=== PATIENT | male | born 1985 | race Caucasian/White ===

== ENCOUNTER 2016-12-20 20:13 | Inpatient (IN) | payer MEDICAID ==
[~2016-12-20] VITALS: Ht 180.3 cm; Wt 66.1 kg
[2016-12-20] MEDS ORDERED: OCTREOTIDE 500 MCG in SODIUM CHLORIDE 0.9% 249 ML IV PRN (20:20)
[2016-12-20] MEDS ORDERED: SODIUM CHLORIDE FLUSH 10ML SYR IVF ONE (20:30)
[2016-12-20] MEDS ORDERED: ONDANSETRON 2MG/ML, 2ML IVPush ONE (20:30)
[2016-12-20] MEDS ORDERED: SODIUM CHLORIDE 0.9% 1,000ML IVBOLUS ONE (20:30)
[2016-12-20] MEDS ORDERED: OCTREOTIDE 100MCG/ML, 1ML (0.1MG/ML) IV ONE (20:30)
[2016-12-20] MEDS ORDERED: ONDANSETRON 2MG/ML, 2ML ONE (21:07)
[2016-12-20] MEDS: PANTOPRAZOLE 80 MG in SODIUM CHLORIDE 0.9% 100 ML IV SCH (21:10)
[2016-12-20 21:21] LABS: ASPARTATE AMINO TRANSFERASE 495 U/L (15-37); BLOOD UREA NITROGEN 4 mg/dL (7-18)
[2016-12-20 21:36] LABS: DIFF TOTAL CELLS COUNTED 100 CELL DIFF
[2016-12-20 21:40] LABS: VERIFY COUNTS? YES
[2016-12-20 21:41] LABS: ANISOCYTOSIS 1+; POLYCHROMASIA 1+
[2016-12-20 21:42] LABS: HYPOCHROMIA 1+
[2016-12-20] MEDS ORDERED: POTASSIUM CHLORIDE 20 MEQ TAB.ER.PRT PO ONE (22:00)
[2016-12-20] MEDS ORDERED: POTASSIUM CHLORIDE 20 MEQ TAB.ER.PRT ONE (22:15)
[2016-12-20 22:40] VITALS: BP 132/92
[2016-12-20] MEDS: NICOTINE 21 MG/24 HR PATCH.TD24 TD SCH (23:52)
[2016-12-21] MEDS ORDERED: SODIUM CHLORIDE 0.9% 1,000 ML IV SCH (00:01)
[2016-12-21] MEDS ORDERED: HYDROmorphone 2 MG/ML, 1ML IVPush PRN (00:30)
[2016-12-21] MEDS ORDERED: LORazepam 2 MG/ML, 1ML IVPush PRN (00:30)
[2016-12-21] MEDS ORDERED: ONDANSETRON 2MG/ML, 2ML IVPush PRN (00:30)
[2016-12-21] MEDS: POTASSIUM CHLORIDE 20 MEQ, MAGNESIUM SULFATE 1 GM, FOLIC ACID 1 MG, THIAMINE 100 MG, MV... IV SCH (01:41)
[2016-12-21] MEDS ORDERED: POTASSIUM PHOSPHATE 44 MEQ in SODIUM CHLORIDE 0.9% 500 ML IV ONE ×2 (02:00→16:00)
[2016-12-21 02:55] VITALS: BP 109/73
[2016-12-21] MEDS: PANTOPRAZOLE 80 MG in SODIUM CHLORIDE 0.9% 100 ML IV SCH (04:11)
[2016-12-21 07:39] VITALS: BP 108/72
[2016-12-21] MEDS ORDERED: PROPOFOL 10 MG/ML, 20ML ONE (08:35)
[2016-12-21 10:58] LABS: BLOOD UREA NITROGEN 4 mg/dL (7-18)
[2016-12-21 11:03] LABS: ASPARTATE AMINO TRANSFERASE 354 U/L (15-37)
[2016-12-21] MEDS: PANTOPRAZOLE 40 MG IV IVPush SCH ×2 (12:46→23:13)
[2016-12-21 13:25] VITALS: BP 118/75
[2016-12-21] MEDS ORDERED: MAGNESIUM SULFATE 3 GM in SODIUM CHLORIDE 0.9% 100 ML IV ONE (16:00)
[2016-12-21] MEDS: GABAPENTIN 300 MG CAPSULE PO SCH ×2 (16:07→21:45)
[2016-12-21 19:50] VITALS: BP 117/80
[2016-12-21] MEDS ORDERED: TRAZODONE 150MG TABLET PO SCH (21:00)
[2016-12-21] MEDS: NICOTINE 21 MG/24 HR PATCH.TD24 TD SCH (21:46)
[2016-12-22 01:08] VITALS: BP 104/73
[2016-12-22] MEDS: POTASSIUM CHLORIDE 20 MEQ, MAGNESIUM SULFATE 1 GM, FOLIC ACID 1 MG, THIAMINE 100 MG, MV... IV SCH (02:02)
[2016-12-22 05:31] LABS: BLOOD UREA NITROGEN 2 mg/dL (7-18)
[2016-12-22 05:36] LABS: ASPARTATE AMINO TRANSFERASE 238 U/L (15-37)
[2016-12-22 05:50] LABS: ANISOCYTOSIS 1+; POLYCHROMASIA 1+
[2016-12-22 06:46] VITALS: BP 113/69
[2016-12-22] MEDS ORDERED: PANT40TA5 PO (08:42)
[2016-12-22] MEDS: GABAPENTIN 300 MG CAPSULE PO SCH (08:43)
[2016-12-22] MEDS: PANTOPRAZOLE 40 MG IV IVPush SCH (09:55)
[2016-12-22] MEDS ORDERED: GABA300C10 PO (11:43)
[2016-12-22] MEDS ORDERED: DIPH25CA61 PO (11:44)
[2016-12-24 14:06] LABS: ANA DIRECT Negative (Negative); COMPLEMENT C3 98 mg/dL (82-167); COMPLEMENT C4 17 mg/dL (14-44); INTERMYOFIBRILLAR AB Negative (Neg:<1:20); PARIETAL CELL AB 17.1 Units (0.0-20.0); RA LATEX TURBIDITY <10.0 IU/mL (0.0-13.9); SARCOLEMMA AB Negative (Neg:<1:20); SJOGREN'S SS-A AB <0.2 AI (0.0-0.9); STRIATION AB Negative (Neg:<1:40); THYROID PEROXIDASE (TPO) AB 11 IU/mL (0-34)
== END 2016-12-22 12:00 | disposition home or self-care (01) | DRG 369 ==
LOC: ED 21:26 → EDIP 21:47 → 3NE 22:29 → DCLOUNGE 12-22 11:21
PROVIDERS: ADMIT Internal Medicine; ATTEND Internal Medicine
PROC: 0DJ08ZZ Inspection of Upper Intestinal Tract, Via Natural or Artificial Opening Endoscopic (ICD-10-PCS; principal; 2016-12-21 09:00)
DX: K22.6 Gastro-esophageal laceration-hemorrhage syndrome (principal); D62 Acute posthemorrhagic anemia; E87.1 Hypo-osmolality and hyponatremia; B15.9 Hepatitis A without hepatic coma; K29.71 Gastritis, unspecified, with bleeding; K70.40 Alcoholic hepatic failure without coma; K70.10 Alcoholic hepatitis without ascites; D69.6 Thrombocytopenia, unspecified; D53.1 Other megaloblastic anemias, not elsewhere classified; G62.9 Polyneuropathy, unspecified; E87.6 Hypokalemia; F17.200 Nicotine dependence, unspecified, uncomplicated; F12.90 Cannabis use, unspecified, uncomplicated; E83.42 Hypomagnesemia; E83.39 Other disorders of phosphorus metabolism; K20.9 Esophagitis, unspecified; F10.20 Alcohol dependence, uncomplicated; Z82.49 Family history of ischemic heart disease and other diseases of the circulatory system; Z83.3 Family history of diabetes mellitus
CPT/HCPCS: 36415; 71010; 76700; 80053; 82105; 82728; 83516; 83540; 83550; 83735; 84100; 84436; 84481; 85014; 85018; 85025; 85610; 85730; 86038; 86160; 86225; 86235; 86255; 86256; 86376; 86431; 86704; 86706; 86708; 86803; 86850; 86900; 87340; 96361; 96374; J2405; J2704; J3411; J3475; J3480; J7070; C9113; J7030; J7040